=== PATIENT | female | born 1985 ===

== ENCOUNTER 2024-11-20 22:54 | Emergency (ER) | payer BC, SELFPAY ==
[2024-11-20 22:54] VITALS: BP 124/76; PULSE 66; RESP 18; TEMP 36.8; O2SAT 99
--- OUTSIDE RECORDS SUMMARY | 2024-11-20 22:55 | XMS_ITS ---
Author Organization Unknown Address [address] [place] [address] [phone] Phone Care Team Providers Care Lead Solutions Architect Name Role Phone JONO Parnell Attending Unavailable EDU WILLIS CRNA Unavailable MARY Bobby Primary Unavailable Results TEST URINE - Colle ct Date/Time: 09/18/2024 09:30 [facility] ID: [id number] [place] [address], [phone] LOINC: Test Value Unit Reference Range Code Code System Flag URINE PREG NEGATIVE Social History Type Status Start Date End Date Code Code Syst em Smoking History Current every day smoker 382214971 SNOMED CT Sex Female Vital Signs Vital Sign Value Unit Wentworth Value Wentworth Unit Date/Time Recent/Initial? Code Code System Body Mass Index 27.44 kg/m2 09/18/2024 09:49 Most Recent 73527 -5 LOINC Body Mass Index 28.90 kg/m2 09/07/2024 14:38 Initial 50784 -5 LOINC Systolic Blood Pressure 106 mm[Hg] 09/18/2024 09:51 Initial 8480- 6 LOINC Diastolic Blood Pressure 52 mm[Hg] 09/18/2024 09:51 Initial 8462- 4 LOINC Body Surface Area 1.73 m2 09/18/2024 09:49 Most Recent 3140- 1 LOINC Body Surface Area 1.77 m2 09/07/2024 14:38 Initial 3140- 1 LOINC Height 157.480 0 cm 62.00 in 09/18/2024 09:49 Most Recent 8302- 2 LOINC Height 157.480 0 cm 62.00 in 09/07/2024 14:38 Initial 8302- 2 LOINC O2 Saturation 97 % 2024 09:51 Initial 87280 -5 LOINC Pulse 52.0 /min 09/18/2024 09:51 Initial 8867- 4 LOINC Respiration 22 /min 09/19/19 09:51 Initial 9279- 1 LOINC Temperature 36.4 Corazon 97.5 F 09/19/19 09:51 Initial 8310- 5 LOINC Weight 68.04 kg 150.00 lbs 09/18/2024 09:49 Most Recent 32537 -7 LOINC Weight 71.67 kg 158.00 lbs 09/07/2024 14:38 Initial 95735 -7 LOINC Medications Medication Start Date End Date Route Frequency Dose Code Code System Medication Instructions Home Meds MiraLAX 17GM/1Dose Oral Powder for Solution 09/18/2024 Unknown ORAL TWICE A DAY 1 unit(s) 182516 RxNorm TAKE 1 EACH ORAL TWICE A DAY Hospital Discharge Instructions Should you have any questions prior to discharge, please contact a member of your healthcare team. If you have left the hospital and have any questions, please contact your primary care physician. Reason For Referral No Data Found Procedures Procedure Name Date Status Code Code Syste m Colonoscopy, flexible; with biopsy, single or multiple 09/18/2024 completed 43026 CPT History of tubal ligation completed 396498237 SNOMEDCT Cholecystectomy completed 42670467 SNOMEDCT Reconstruction of facial bones completed 80844 004 SNOMEDCT Anesthesia for lower intesti nal endoscopic procedures, endoscope introduce 09/18/2024 completed 84123 CPT Allergies and Adverse Reactions Allergy Substance Reaction Severity Start Date Concern Status Co de Code System CODEINE Active 2670 RxNorm LATEX Active 7653908 RxNorm Plan of Treatment CT Abdomen/Pelvis WWO Contrast (16031) 04/18/2024 US Kidney & Bladder (30011) 04/30/2024 Colonoscopy 09/18/2024 Encounters Encounter Diagnosis Start Date Code Code Sys tem Polyp of colon 09/18/2024 SNOMED-CT Personal Care Team Section Performer Name Performer Role Active Date Inactive Benjy Castillo PCP - Primary care physician 2024-07-18 2024-09-16 GRICEL HERNANDEZ PCP - Primary care physician 2024-09-16
--- OUTSIDE RECORDS SUMMARY | 2024-11-20 22:56 | XMS_ITS ---
Author Organization Unknown Address [address] [place] [address] [phone] Phone Care Team Providers Care Public Bath Attendant Name Role Phone AYDEE RANDOLPH Attending Unavailable NO PCP Primary Unavailable Results CT ABD/PEL W+WO CONTRAST - C ompleted: 04/18/2024 09:07 LOINC: 22466-8 EXAM DESCRIPTION: CT ABD/PEL W+WO CONTRAST REASON FOR STUDY: ABDOMINAL PAIN - R/O HERNIA CHRONIC HEMATURIA Duration: JUN 2023 Previous Surgery: CHOLECYSTECTOMY TECHNIQUE: CT scan of the abdomen and pelvis performed without and with intravenous and without oral contrast using helical scanning technique with dynamic intravenous contrast injection. Reconstructed coronal and sagittal MPR images reviewed. All images stored on PACS. Automated exposure control was used as a dose optimization technique for this examination. CONTRAST TYPE/DOSE: 100 mL @ 0835 hrs of ISOVUE 370 injected via LAC 20g COMPARISON: None FINDINGS: LOWER CHEST: Lung bases are clear. Heart size normal. No effusion. LIVER/BILIARY: Mild hepatic steatosis. Biliary tree normal in caliber. GALLBLADDER: Absent. SPLEEN: Normal. PANCREAS: Normal. ADRENAL GLANDS: Normal. KIDNEYS/URINARY TRACT: Unremarkable. GI: Short segment small bowel intussusception in the left lower quadrant. Stomach and small bowel otherwise appear normal. Colon and appendix unremarkable. OTHER ABDOMINAL/PELVIS: Major vascular structures are grossly patent and normal in caliber. Left adnexal cysts. Nabothian cysts. No enlarged lymph node free fluid is seen. MSK: Normal. BODY WALL: Normal. IMPRESSION: 1. Negative for hernia. 2. No acute abnormality identified. 3 cm and 2.7 cm left adnexal cysts without hemorrhage or other evidence of complexity. Normal appendix. THIS IS AN ELECTRONICALLY VERIFIED FINAL REPORT 04/22/2024 12:58 AM - Electronically signed by Hero Draper M.D. AR: PAOLA Report ID: [id number] Reading Location: [place] [address] Social History Type Status Start Date End Date Code Code Syst em Smoking History Current every day smoker 449337153 SNOMED CT Sex Female Medications Medication Start Date End Date Route Frequency Dose Code Code System Medication Instructions Home Meds MiraLAX 17GM/1Dose Oral Powder for Solution 09/18/2024 Unknown ORAL TWICE A DAY 1 unit(s) 387115 RxNorm TAKE 1 EACH ORAL TWICE A DAY Hospital Discharge Instructions Should you have any questions prior to discharge, please contact a member of your healthcare team. If you have left the hospital and have any questions, please contact your primary care physician. Reason For Referral No Data Found Allergies and Adverse Reactions Allergy Substance Reaction Severity Start Date Concern Status Co de Code System CODEINE Active 2670 RxNorm LATEX Active 3092308 RxNorm Plan of Treatment CT Abdomen/Pelvis WWO Contrast (68223) 04/18/2024 US Kidney & Bladder (77568) 04/30/2024 Colonoscopy 09/18/2024 Encounters Encounter Diagnosis Start Date Code Code Sys tem Lower abdominal pain, unspecified 04/18/2024 SNOMED-CT Personal Care Team Section Performer Name Performer Role Active Date Inactive Benjy Castillo PCP - Primary care physician 2024-07-18 2024-09-16 GRICEL HERNANDEZ PCP - Primary care physician 2024-09-16 Imaging Narrative Notes
--- OUTSIDE RECORDS SUMMARY | 2024-11-20 22:56 | XMS_ITS ---
Author Organization Unknown Address [address] [place] [address] [phone] Phone Care Team Providers Care Warehouse Order Filler Name Role Phone AMMON ANGULO Attending Unavailable MI JAVAD Primary Unavailable Results URINALYSIS w/Microscopy - Co llect Date/Time: 07/18/2024 09:00 [facility] ID: [id number] [place], [place], [id number] LOINC: 05982-3 Test Value Unit Reference Range Code Code System Flag UR SOURCE VOIDED 08233-7 LOINC COLOR YELLOW YELLOW 5778-6 LOINC CLARITY CLEAR CLEAR 95318-5 LOINC SPEC GRAVITY 1.015 1.000-1.030 5811-5 LOINC PH 7.0 5.0 - 6.5 5803-2 LOINC LEUK EST NEGATIVE NEGATIVE 5799-2 LOINC NITRATE NEGATIVE NEGATIVE PROTEIN NEGATIVE NEGATIVE 5804-0 LOINC GLUCOSE NEGATIVE NEGATIVE 94244-9 LOINC KETONES NEGATIVE NEGATIVE 41545-9 LOINC UROBILINOGEN 0.2 0.2 - 1.0 5818-0 LOINC BILIRUBIN NEGATIVE NEGATIVE 42116-7 LOINC BLOOD 1+ NEGATIVE 90986-1 LOINC WBC 0-2 0 - 2 04364-8 LOINC RBC 0-2 0 - 2 65866-6 LOINC EPITHELIAL FEW RARE-FEW 61822-1 LOINC BACTERIA NONE SEEN NONE SEEN 79231-0 LOINC MUCUS NONE SEEN NONE SEEN 8247-9 LOINC YEAST NOT PRESENT NOT PRESENT 22438-7 LOINC TRICHOMONAS NOT PRESENT NOT PRESENT 87383-8 LOINC SPERMATOZOA NOT PRESENT NOT PRESENT 59057-0 LOINC CASTS NOT PRESENT 98245-7 LOINC CRYSTALS NOT PRESENT 35809-0 LOINC Social History Type Status Start Date End Date Code Code Syst em Smoking History Current every day smoker 800636200 SNOMED CT Sex Female Medications Medication Start Date End Date Route Frequency Dose Code Code System Medication Instructions Home Meds MiraLAX 17GM/1Dose Oral Powder for Solution 09/18/2024 Unknown ORAL TWICE A DAY 1 unit(s) 081150 RxNorm TAKE 1 EACH ORAL TWICE A [...] System CODEINE Active 2670 RxNorm LATEX Active 8558353 RxNorm Plan of Treatment CT Abdomen/Pelvis WWO Contrast (05085) 04/18/2024 US Kidney & Bladder (81786) 04/30/2024 Colonoscopy 09/18/2024 Encounters Encounter Diagnosis Start Date Code Code Sys tem Other microscopic hematuria 07/18/2024 SNOMED-CT Personal Care Team Section Performer Name Performer Role Active Date Inactive Benjy Castillo PCP - Primary care physician 2024-07-18 2024-09-16 GRICEL HERNANDEZ PCP - Primary care physician 2024-09-16
--- OUTSIDE RECORDS SUMMARY | 2024-11-20 22:56 | XMS_ITS ---
Author Organization Unknown Address [address] [place] [address] [phone] Phone Care Team Providers Care Hospice Clinical Manager Name Role Phone AYDEE JOHNSONTANI Attending Unavailable NO PCP Primary Unavailable Results TV Trich genital swab/urine PCR CEPHEID - Collect Date/Time: 04/04/2024 15:00 [facility] ID: [id number] [address] [place] [address], [phone] LOINC: 32796-3 Test Value Unit Reference Range Code Code System Flag TV TRICH SOURCE: URINE TV TRICH NOT DETECTED SEND TO [facility]? NO URINALYSIS w/Microscopy/C&S if indicated - Collect Date/Time: 04/04/2024 15:00 [facility] ID: [id number] [address] [place] [address], [phone] LOINC: 23314-0 Test Value Unit Reference Range Code Code System Flag UR SOURCE VOIDED 50935-2 LOINC COLOR YELLOW YELLOW 5778-6 LOINC CLARITY CLOUDY CLEAR 13507-7 LOINC SPEC GRAVITY >=1.030 1.000-1.030 5811-5 LOINC A PH 6.0 5.0 - 6.5 5803-2 LOINC LEUK EST NEGATIVE NEGATIVE 5799-2 LOINC NITRATE NEGATIVE NEGATIVE PROTEIN NEGATIVE NEGATIVE 5804-0 LOINC GLUCOSE NEGATIVE NEGATIVE 53078-0 LOINC KETONES NEGATIVE NEGATIVE 23137-3 LOINC UROBILINOGEN 0.2 NEGATIVE 5818-0 LOINC BILIRUBIN NEGATIVE NEGATIVE 64727-8 LOINC BLOOD 3+ NEGATIVE 95481-1 LOINC WBC 0-2 0 - 2 35410-1 LOINC RBC 10-20 0 - 2 33197-4 LOINC A EPITHELIAL OCCASIONA RARE-FEW 33824-0 LOINC BACTERIA FEW NONE SEEN 37936-3 LOINC MUCUS 2+ NONE SEEN 8247-9 LOINC A YEAST NOT PRESENT NOT PRESENT 21775-2 LOINC CASTS NONE SEEN 69515-1 LOINC CRYSTALS NONE SEEN 54564-3 LOINC CULTURE? NO 8251-1 LOINC DIAGNOSIS N/A CT/NG genital swab/urine PCR CEPHEID - Collect Date/Time: 04/04/2024 15:00 [facility] ID: [id number] [address] [place] [address], [phone] LOINC: 12836-5 Test Value Unit Reference Range Code Code System Flag CT/NG SOURCE: URINE CT NOT DETECTED NORMAL: NOT DETECTED 65411-1 LOINC NG NOT DETECTED NORMAL: NOT DETECTED 17117-5 LOINC SEND TO [facility]? NO LIPID PANEL - Collect Date/T calvin: 04/04/2024 14:19 [facility] ID: [id number] [address] [place] [address], [phone] LOINC: 62924-2 Test Value Unit Reference Range Code Code System Flag FASTING NO CHOLESTEROL 180 mg/dL L=0 H=200 3-3 LOINC TRIGLYCERIDE 210 mg/dL L=0 H=150 2571-8 LOINC H HDL 47 mg/dL L=40 H=60 5-9 LOINC LDL 78 mg/dL 2088-1 LOINC TSH / REFLEX FT4 - Collect D ate/Time: 04/04/2024 14:19 [facility] ID: [id number] [address] [place] [address], [phone] LOINC: Test Value Unit Reference Range Code Code System Flag TSH 0.977 uIU/L L=0.470 H=4.680 89298-1 LOINC CBC W/ DIFF - Collect Date/T calvin: 04/04/2024 14:19 [facility] ID: [id number] [address] [place], [place], [phone] LOINC: 41020-2 Test Value Unit Reference Range Code Code System Flag WBC 13.6 10^3uL L=4.8 H=10.8 H RBC 5.23 10^6uL L=4.20 H=5.40 HEMOGLOBIN 14.4 g/dL L=12.0 H=16.0 718-7 LOINC HEMATOCRIT 44.9 VOL% L=37.0 H=47.0 4544-3 LOINC MCV 85.9 fL L=81.0 H=99.0 MCH 27.5 pg L=27.0 H=32.0 MCHC 32.1 g/dL L=32.0 H=36.0 PLATELETS 303 10^3uL L=100 H=400 53415-5 LOINC RDW 12.8 % L=11.7 H=15.5 %GRAN 77.8 % L=40.0 H=70.0 36431-6 LOINC H %LYMPH 16.5 % L=20.0 H=45.0 736-9 LOINC L %MONO 4.7 % L=2.0 H=10.0 60414-4 LOINC %EOS 0.2 % L=0.0 H=6.0 713-8 LOINC %BASO 0.4 % L=0.0 H=3.0 706-2 LOINC #NEUT 10.6 10^3uL L=1.9 H=7.6 99291-9 LOINC H #LYMPH 2.3 10^3uL L=0.9 H=4.9 70924-6 LOINC #MONO 0.6 10^3uL L=0.1 H=0.9 41039-6 LOINC #EOS 0.0 10^3uL L=0.0 H=0.6 712-0 LOINC #BASO 0.06 10^3uL L=0.00 H=0.10 13319-3 LOINC #IM GRANS 0.1 10^3uL L=0.0 H=7.0 65874-0 LOINC %IM GRANS 0.4 % L=0.0 H=5.0 42923-4 LOINC %NRB 0.0 L=0.0 H=0.2 79747-9 LOINC #NRB 0.000 L=0.000 H=0.012 33669-4 LOINC MANUAL DIFF NOT INDICATED RBC MORPH NOT INDICATED COMPREHENSIVE METABOLIC PANE L - Collect Date/Time: 04/04/2024 14:19 [facility] ID: [id number] [address] [place], [place], [phone] LOINC: 67059-7 Test Value Unit Reference Range Code Code System Flag FASTING NO BUN 5 mg/dL L=7 H=20 3094-0 LOINC L CREATININE 0.80 mg/dL L=0.52 H=1.04 2160-0 LOINC GLUCOSE 98 mg/dL L=74 H=106 2345-7 LOINC SODIUM 138 mmol/L L=132 H=144 2951-2 LOINC POTASSIUM 3.5 mmol/L L=3.5 H=5.1 2823-3 LOINC CHLORIDE 99 mmol/L L=98 H=107 2075-0 LOINC CO2 26.0 mmol/L L=22.0 H=30.0 8-9 LOINC ANION GAP 17 L=10 H=20 14799-5 LOINC OSMOLALITY 283 mOs/kG L=280 H=296 20433-5 LOINC BUN/CREAT 6.3 3097-3 LOINC CALCIUM 9.8 mg/dL L=8.3 H=10.5 92969-1 LOINC AST 23 U/L L=15 H=46 1920-8 LOINC ALT 18 U/L L=9 H=72 1742-6 LOINC ALKALINE PHOS 63 U/L L=38 H=126 6768-6 LOINC TOTAL BILI 0.7 mg/dL L=0.2 H=1.3 1975-2 LOINC ALBUMIN 5.0 G/dL L=3.5 H=5.0 1751-7 LOINC TOTAL PROTEIN 8.3 g/L L=6.3 H=8.2 2885-2 LOINC H A/G RATIO 1.5 19933-3 LOINC AGE 38 77786-3 LOINC eGFR NON-AFR 85 ml/min eGFR AFR AMER 103 ml/min Social History Type Status Start Date End Date Code Code Syst em Smoking History Current every day smoker 632481916 SNOMED CT Sex Female Medications Medication Start Date End Date Route Frequency Dose Code Code System Medication Instructions Home Meds MiraLAX 17GM/1Dose Oral Powder for Solution 09/18/2024 Unknown ORAL TWICE A DAY 1 unit(s) 366294 RxNorm TAKE 1 EACH ORAL TWICE A [...] System CODEINE Active 2670 RxNorm LATEX Active 9728759 RxNorm Plan of Treatment CT Abdomen/Pelvis WWO Contrast (19462) 04/18/2024 US Kidney & Bladder (14649) 04/30/2024 Colonoscopy 09/18/2024 Encounters Encounter Diagnosis Start Date Code Code Sys tem Encounter for screening for cardiovascular disorders 0 04/04/2024 SNOMED-CT Personal Care Team Section Performer Name Performer Role Active Date Inactive Benjy Castillo PCP - Primary care physician 2024-07-18 2024-09-16 GRICEL HERNANDEZ PCP - Primary care physician 2024-09-16
--- OUTSIDE RECORDS SUMMARY | 2024-11-20 22:57 | XMS_ITS ---
Author Organization Unknown Address [address] [place] [phone] Phone Care Team Providers Care Ore Dryer Name Role Phone BAJWA TOMASA Attending Unavailable NO PCP Primary Unavailable Results US KIDNEY AND BLADDER - Comp leted: 04/30/2024 13:17 LOINC: EXAM DESCRIPTION: US KIDNEY AND BLADDER REASON FOR STUDY: Hematuria, duration unknown TECHNIQUE: Ultrasound of the kidneys and urinary bladder was performed with grayscale imaging. COMPARISON: CT dated 04/18/2024. FINDINGS: RIGHT KIDNEY: The right kidney measures 11.7 x 4.7 x 5.0 cm.. There is maintenance of corticomedullary differentiation. There is no hydronephrosis. Cortical thickness 1.3 cm. No focal mass. LEFT KIDNEY: The left kidney measures 12.9 x 5.2 x 5.4 cm. . There is no hydronephrosis. Corticomedullary differentiation maintained. No focal mass. Technologist measures a 6 mm echogenic focus within the mid pole of the kidney. This is felt to represent peripelvic fat, as there is no stone of this size on recent CT examination from 04/18/2024. URINARY BLADDER: The urinary bladder has a volume of 97 mL. Postvoid residual 13 mL. Both ureteral jets are demonstrated. OTHER: No other additional findings. IMPRESSION: 1. No definitive source for patient's hematuria. If hematuria persists, CT IVP can be considered for further evaluation. 2. No hydronephrosis THIS IS AN ELECTRONICALLY VERIFIED FINAL REPORT 05/02/2024 8:40 AM - Electronically signed by Jocy Schofield M.D. TW: ALYSSA Report ID: [id number] Reading Location: [id number] Social History Type Status Start Date End Date Code Code Syst em Smoking History Current every day smoker 213290009 SNOMED CT Sex Female Medications Medication Start Date End Date Route Frequency Dose Code Code System Medication Instructions Home Meds MiraLAX 17GM/1Dose Oral Powder for Solution 09/18/2024 Unknown ORAL TWICE A DAY 1 unit(s) 632625 RxNorm TAKE 1 EACH ORAL TWICE A [...] System CODEINE Active 2670 RxNorm LATEX Active 0009125 RxNorm Plan of Treatment CT Abdomen/Pelvis WWO Contrast (08520) 04/18/2024 US Kidney & Bladder (68338) 04/30/2024 Colonoscopy 09/18/2024 Encounters Encounter Diagnosis Start Date Code Code Sys tem Microscopic hematuria 04/30/2024 828614998 SNOMED -CT Personal Care Team Section Performer Name Performer Role Active Date Inactive Benjy Castillo PCP - Primary care physician 2024-07-18 2024-09-16 GRICEL HERNANDEZ PCP - Primary care physician 2024-09-16 Imaging Narrative Notes
--- OUTSIDE RECORDS SUMMARY | 2024-11-20 22:57 | XMS_ITS | Data Portability ---
Author Organization [facility], [address] [facility]) Address [address] [place] [address] Assessment Encounter Date Assessment Date Assessment LastModified by Organization Details LastModified Time 07/18/2024 07/18/2024 IMPRESSION: Microscopic hematuria, essentially negative CT and ultrasound. PLAN: Will proceed with cystoscopy. Also send UA with micro and urine cytology. The patient stated she does not want cystoscopy today or at this time. I told her the importance of cystoscopy to rule out malignancy. She understands and will return as needed. [facility] lsines Not available 07/18/2024 14:53:36 Plan of Treatment Reminders Order Date Submit Date Provider Last Modified By Organization Details Last Modified Time Details Appointments None recorded. Lab culture + sensitivit y, urine 2024 025 GINNY [facility], [address] [place] [address], [address], 5 13:59:39 urinalysis , complete 2024 025 [email or web address] [facility], [address] [place] [address], [address], 5 08:46:02 cytology, urine 2024 025 [email or web address] [facility], [address] [place] [address], [address], 5 07:59:37 Referral None recorded. Procedures None recorded. Surgeries None recorded. Imaging None recorded. Medication Orders None recorded. Patient TargetsNo targets recorded. Patient InstructionsNo instructions recorded. Reason for Referral None Reported. Results Created Date Observation Date Name Description Value Unit Range Abnormal Flag Note LastModifiedBy Organization Detail LastModifiedTime 07/18/19 25 07/18/2024 NON-G YN CYTOL OGY ngyn Perfo rmed at: [facility] Order ing Provi rigoberto: Abbie r, Manish t Patie nt Name: RICKIE PRATT rose #: [id number] /A ge/Ge nder: 1984 (Age: 39) / F Proce dure Date: 025 SP ECIME N RECEI LORRIE * Urine , voide d Speci men Adequ acy Satis facto ry for evalu ation Cytol ogic Diagn osis Negat bennie for high- grade uroth elial carci noma [place] EL ECTRO NICAL LY VERIF IED BY AMANDEEP DUENAS MD 025 15:21 [facility] Other micro scopi c hemat uria GR OSS DESCR IPTIO N 30 mLs of unfix ed, yello w fluid is submi tted for cytol ogic evalu ation . 1 cytoc entri fuge prepa ratio n is evalu ated. END OF REPOR T Not Available [facility] [address] [place] [address], [address], 07/19/2024 16:21:29 Result Notes None recorded. Problems Name Problem SNOMED Code Status Onset Date Resolution Date Notes Provider Name and Address Organization Details Recorded Time Microscopic hematuria 160367446 Active 2024 Roya Camara [facility] 5 10:06:18 Acute urinary tract infection 292361996 Active 2024 Sarahi Worrell [facility] 5 14:34:14 Problem Notes None recorded. Medical Equipment None Reported. Medications Name Sig Start Date Stop Date Status Note LastModified by Organization Details LastModified Time Macrobid 100 mg capsule Take 1 capsule every 12 hours by oral route for 7 days. 025 active Not Available Not Available Not Avai lable Slynd 4 mg (28) tablet TAKE 1 TABLET BY MOUTH ONCE DAILY active Not Available Not Available No t Available Vitals Date Recorded Body height Body mass index (BMI) Body weight Body temperature Heart rate Respiratory rate Oxygen saturation Oxygen saturation in Arterial blood by Pulse oximetry Systolic blood pressure Diastolic blood pressure Provider Name and Address Organization Details Last Updated DateTime 5 158.75 cm 28.4 kg/m2 72520.5 9 g 97.1 [degF] 58 /min 18 /min 99 % 99 % 108 mm[Hg] 71 mm[Hg] Roya Camara [facility] 09:28:41 Social History Question Answer Notes LastModified by Organizat ion Details LastModified Time E-cigarettes Or Vaporization Device? Uses Nicotine Containing Device [id number] Information not available 07/18/2024 Sex: Unknown Functional Status None recorded. Mental Status None recorded. Family History Nothing Reported. Medical History No medical history recorded. Gynecological HistoryNo gynecological history recorded. Obstetrics History GPAL:G 0 P 0 0 0 0 Past Encounters Encounter ID Performer Location Encounter Start Date Encounter Closed Date Diagnosis/Indication Diagnosis SNOMED-CT Code Diagnosis ICD10 Code Diagnosis Note [id number] Jt Campbell MD [facility] [address] [place] [address] 07/18/2024 09:17:25 07/18/2024 10:37:12 Microscopic hematuria 896597897 R31.29 Health Concerns Section Related Observation LastModified by Organization Detai ls LastModified Time None Recorded Concern Status LastModified by Organization Details LastModified Time None Recorded Advance Directives Directive None Recorded Payers Insurance Date Sequence Insurance Name Policy Number Policy Mccarty Covered Member ID Mccarty Member ID Guarantor Name 09/14/2024 1 [facility] (MEDICAID REPLACEMENT - HMO) [id number] Rebecca Mojica [id number] Rebecca Mojica Notes Date Note Type Note Provider Name and Address Organization Details Recorded Time 07/18/2024 text/html A 39-year-old wi th microscopic hematuria, 10-20 red blood cells per high-power field. She underwent a renal ultrasound and a CT scan which I reviewed which showed no evidence of tumor, stones or lesions or malignancy. There was a hyperechoic region in one of the kidneys and they think this is fat. She has had no documented urinary tract infections. She does have some nondescript pelvic pain. No history of stones, urologic surgery. No family history of recurrent infections. Jt Campbell MD [address] [place] [address], [phone], [facility] 07/19/2024 08:48:47 OBGyn Episode No OBEpisode recorded.
--- OUTSIDE RECORDS SUMMARY | 2024-11-20 22:57 | XMS_ITS ---
Author Organization Unknown Address [address] [place] [address] [phone] Phone Care Team Providers Care Spinning Bath Person Name Role Phone CRISTÓBAL GIRON Phu Attending Unavailable DESAI ANDREW Gautam Primary Unavailable Results CT/NG genital swab/urine PCR CEPHEID - Collect Date/Time: 04/01/2024 16:05 [facility] ID: [id number] [address] [place] [address], [phone] LOINC: 61688-9 Test Value Unit Reference Range Code Code System Flag CT/NG SOURCE: URINE CT NOT DETECTED NORMAL: NOT DETECTED 76558-3 LOINC NG NOT DETECTED NORMAL: NOT DETECTED 79427-9 LOINC SEND TO [facility]? NO Social History Type Status Start Date End Date Code Code Syst em Smoking History Current every day smoker 000595211 SNOMED CT Sex Female Medications Medication Start Date End Date Route Frequency Dose Code Code System Medication Instructions Home Meds MiraLAX 17GM/1Dose Oral Powder for Solution 09/18/2024 Unknown ORAL TWICE A DAY 1 unit(s) 031732 RxNorm TAKE 1 EACH ORAL TWICE A [...] System CODEINE Active 2670 RxNorm LATEX Active 8102685 RxNorm Plan of Treatment CT Abdomen/Pelvis WWO Contrast (55195) 04/18/2024 US Kidney & Bladder (43956) 04/30/2024 Colonoscopy 09/18/2024 Encounters Encounter Diagnosis Start Date Code Code Sys tem Dysuria 04/01/2024 SNOMED-CT Personal Care Team Section Performer Name Performer Role Active Date Inactive Da te Ashish Holliday PCP - Primary care physician 2024-07-18 2024-09-16 GRICEL HERNANDEZ PCP - Primary care physician 2024-09-16
--- OUTSIDE RECORDS SUMMARY | 2024-11-20 22:57 | XMS_ITS ---
Author Organization Unknown Address [address] [place] [phone] Phone Care Team Providers Care Night Court Magistrate Name Role Phone QUICK OSCAR Roberts Attending Unavailable [place] FARNSWORTH Primary Unavailable Social History Type Status Start Date End Date Code Code Syst em Smoking History Current every day smoker 010182518 SNOMED CT Sex Female Medications Medication Start Date End Date Route Frequency Dose Code Code System Medication Instructions Home Meds MiraLAX 17GM/1Dose Oral Powder for Solution 09/18/2024 Unknown ORAL TWICE A DAY 1 unit(s) 308948 RxNorm TAKE 1 EACH ORAL TWICE A [...] System CODEINE Active 2670 RxNorm LATEX Active 4630506 RxNorm Plan of Treatment CT Abdomen/Pelvis [facility]WO Contrast (67592) 04/18/2024 US Kidney & Bladder (08869) 04/30/2024 Colonoscopy 09/18/2024 Encounters Encounter Diagnosis Start Date Code Code Sys tem Change in bowel habit 08/15/2024 SNOMED -CT Personal Care Team Section Performer Name Performer Role Active Date Inactive Da erin Holliday PCP - Primary care physician 2024-07-18 2024-09-16 GRICEL HERNANDEZ PCP - Primary care physician 2024-09-16
--- NOTE | 2024-11-20 22:58 | ED.FEMALEGU ---
HPI - Female Genitourinary General Chief complaint: Urogenital-Female Stated complaint: UTI Time Seen by Provider: 11/20/24 22:56 Source: patient Mode of arrival: ambulatory Limitations: no limitations History of Present Illness HPI Narrative: patient is a 39-year-old female with urinating more than normal and slight dysuria. No concerns for STDs. Patient started symptoms 3 days ago. MD elicited complaint: dysuria, UTI and difficulty urinating Pertinent past history: recurrent UTIs Onset (ago): day(s) ( Three) Location of symptoms: suprapubic and urethra Severity: mild Female Urogenital Radiation: Non-Radiating Severity scale (1-10): 2 Quality of pain: cramping and sharp Consistency: constant Vaginal discharge: white ( patient said this is likely a normal variant) Vaginal bleeding: none Urinary symptoms: Dysuria, Urgency, Frequency and Difficulty Urinating Exacerbating factors: none Relieving factors: none Associated symptoms: denies other symptoms Treatment prior to arrival: none Sexual activity: No Patient : No Related Data Allergies Allergy/AdvReac Type Severity Reaction Status Date / Time codeine Allergy Intermediate Hives Verified 11/20/24 23:03 Review of Systems Review of Systems: All systems reviewed & are unremarkable except as noted in HPI and below Constitutional: Constitutional: Reports no additional constitutional complaints Eyes: Eyes: Reports no additional eye complaints ENT: Reports system reviewed and no additional complaints, except as documented Cardiovascular: Cardiovascular: Reports no additional cardiovascular complaints Respiratory: Respiratory: Reports no additional respiratory complaints Gastrointestinal: Gastrointestinal: Reports no additional gastrointestinal complaints Genitourinary: Genitourinary: Reports no additional female genitourinary complaints Musculoskeletal: Musculoskeletal: Reports no additional musculoskeletal complaints Integumentary/Breasts: Skin/Breast: Reports system reviewed and no additional complaints, except as docu Neurologic: Reports system reviewed and no additional complaints, except as documented Psychiatric: Psychiatric: Reports no additional psychiatric complaints Endocrine: Endocrine: Reports no additional endocrine complaints Hematologic/Lymphatic: Hematologic/Lymphatic: Reports no additional hematologic/lymphatic complaints Allergic/Immunologic: Allergic/Immunologic: Reports no additional allergic/immunologic complaints PMFSH Social History Social History Smoking status: Current every day smoker Exam Const: General: healthy appearing Nutritional Appearance: well nourished Orientation/consciousness: patient oriented x3 HENMT: Head: normal to inspection Ears: external ears normal Face/Nose/Sinus: Normal external nose present Eyes: Conjunctivae: conjunctivae normal Pupils: Equal, round and reactive pupils present EOM: EOMs intact bilaterally Neck: Neck: normal visual inspection Chest: Chest palpation & inspection: normal inspection of the chest Resp: Effort & Inspection: normal respiratory effort and not labored Auscultation: clear to auscultation bilaterally and no crackles Cardio: Rate: regular rate Rhythm: regular rhythm Heart sounds: no murmurs GI: Inspection: non-distended GI Palp: Yes Soft to palpation and No Tenderness to palpation present (GI) Auscultation: normal bowel sounds : General: Yes bladder normal to palpation Back/Spine/Pelvis: Back: no CVA tenderness Skin: General skin exam: normal color Rashes: no rashes Wounds: no wounds Neuro: General: patient oriented x3 Cranial nerves: Yes Nystagmus not present Speech: normal speech Extrem: General: normal to inspection Psych: Appearance: grossly normal Mental Status: mental status grossly normal Affect: normal affect MDM - Female Genitourinary MDM Narrative Medical decision making narrative: patient is a 39-year-old female with some urinary tract symptoms for the past 3 days. We will do urinalysis and a test. We will treat accordingly. Discharge Plan Discharge Clinical Impression: Urinary tract infection Qualifiers: Urinary tract infection type: acute cystitis Hematuria presence: with hematuria Qualified Code(s): N30.01 - Acute cystitis with hematuria Patient Disposition: Home Condition: Stable Instructions: Antibiotic Form, Urinary Tract Infection in Women (ED) Patient Language: Albanian Prescriptions: New ciprofloxacin HCl 500 mg tablet 500 mg PO BID 7 Days Qty: 14 0RF Follow-up/Referrals: UNKNOWN,DOCTOR [Primary Care Provider] - Time of Disposition: 00:25
[2024-11-20 23:20] LABS: Add Urine Microscopic? YES; Appearance Urine Clear (Clear); Bilirubin Urine Negative (Negative); Blood Urine 3+ (Negative); Color Urine Yellow (Yellow); Glucose Urine UA Negative (Negative); Ketones Urine Trace (Negative); Leukocyte Esterase Ur Negative LEU/UL (Negative); Nitrate Urine Negative (Negative); Protein Urine Negative (Negative); Specific Grav Ur 1.025 (1.010-1.020); Urobilinogen Urine 0.2 mg/dL (0.2-1.0)
--- OUTSIDE RECORDS SUMMARY | 2024-11-20 23:36 | XMS_ITS | Clinical Summary ---
Author Organization [facility] Address [address] [place] [id number] Care Team Providers Care Appliance Mechanic Name Role Phone James Vasques MD Primary Care Provider [phone] Allergies Active Allergy Reactions Criticality Noted Date Comments Katalina Painting 10/13/2019 Medications No known medications Family History Medical History Relation Comments Cancer Father Depression Mother Relation Status Comments Father Mother Social History Tobacco Use Types Packs/Day Years Used Date Smoking Tobacco: Former Cigarettes Smokeless Tobacco: Never Tobacco Cessation:Counseling Given: Not Answered Alcohol Use Standard Drinks/Week Comments Not Currently 0 (1 standard drink = 0.6 oz pur e alcohol) Comments No Sex and Gender Information Value Date Recorded Sex Assigned at Female 09/13/2024 10:[address] [employer] Sex Female 11:[address] Gender Identity Not on file Sexual Orientation Not on file Last Filed Vital Signs Vital Sign Reading Time Taken Comments Blood Pressure 103/69 11/27/2023 5:00 PM CDT Pulse 72 11/27/2023 4:45 PM CDT Temperature 36.1 C (96.9 F) 11/27/2023 3:13 PM CDT Respiratory Rate 18 11/27/2023 3:13 PM CDT Oxygen Saturation 98% 11/27/2023 5:00 PM CDT Inhaled Oxygen Concentration - - Weight 74.8 kg (165 lb) 11/27/2023 3:13 PM CDT Height 158.8 cm (5' 2.5 ) 11/27/2023 3:13 PM CDT Body Mass Index 29.7 11/27/2023 3:13 PM CDT Plan of Treatment Health Maintenance Due Date Last Done Comments Cervical Cancer Screening Pa p Smear (Age 30 to 64) Every 3 Years 1984 Annual Physical 1987 Hepatitis C 2002 DTaP, Tdap and Td Vaccines ( 1 - Tdap) 2003 Hepatitis B Vaccines (1 of 3 - 19+ 3-dose series) 2003 Cervical Cancer Screening Hayden dominguez with HPV Testing (Age 30 to 64) Every 5 Years 2014 Cervical Cancer Screening with HPV 2014 COVID-19 Vaccine (1 - 2023-2 5 season) 2024 Mammogram Screening 2024 HPV Vaccines Aged Out No longer eligi ble based on patient's age to complete this topic Meningococcal B Vaccine Aged Out No l onger eligible based on patient's age to complete this topic Meningococcal Vaccine Aged Out No harry mario eligible based on patient's age to complete this topic Pneumococcal Vaccine: Pediat rics (0 to 5 Years) and At-Risk Patients (6 to 49 Years) Aged Out No longer eligible b ased on patient's age to complete this topic RSV Immunizations Under 20 Months Aged Out No longer eligible based on patient's age to complete this topic Insurance [facility] Care Teams Appliance Mechanic Relationship Specialty Start Date End Date James Vasques MD [address] [place] [id number] PCP - General FAMILY PRACTICE 10/13/19
[2024-11-20 23:37] LABS: Bacteria Urine 1+ /hpf; Mucus Urine Moderate /lpf; Pregnancy On Board Control Positive; Squamous Epithelial Cell Urine Moderate /hpf (Few); Urine Pregnancy Test Negative; WBC Urine 0-3 /hpf (0-3)
[2024-11-21] MEDS: CIPROFLOXACIN 500 MG TAB PO (00:27)
[2024-11-21 00:41] VITALS: BP 120/70; PULSE 60; RESP 18; O2SAT 100
== END 2024-11-21 00:41 | disposition home or self-care (01) ==
PROVIDERS: Emergency Provider Emergency Medicine
DX: N30.01 Acute cystitis with hematuria (principal); F17.200 Nicotine dependence, unspecified, uncomplicated
CPT/HCPCS: 81001; 81025; 99283; A9270